=== PATIENT | female | born 1945 ===

== ENCOUNTER 2017-04-20 07:30 | Inpatient (IN) | payer MEDICARE, OTHER ==
[2017-04-20] MEDS ORDERED: SODIUM CHLORIDE 0.9% 1,000 ML IV ONE (09:21)
[2017-04-20] MEDS ORDERED: LIDOCAINE 2% INJ 20 MG/ML (20 ML MDV) ONE (09:50)
[2017-04-20] MEDS ORDERED: MIDAZOLAM 2 MG/2 ML VIAL ONE (09:54)
[2017-04-20] MEDS ORDERED: diphenhydrAMINE 50 MG/ML 1 ML VIAL ONE (09:54)
[2017-04-20] MEDS ORDERED: MIDAZOLAM 2 MG/2 ML VIAL IV ONE (10:25)
[2017-04-20] MEDS ORDERED: diphenhydrAMINE 50 MG/ML 1 ML VIAL IVP ONE (10:25)
[2017-04-20] MEDS ORDERED: LIDOCAINE 2% INJ 20 MG/ML SQ ONE (10:27)
[2017-04-20] MEDS ORDERED: BIVALIRUDIN 250 MG in SODIUM CHLORIDE 0.9% 50 ML IV ONE (10:40)
[2017-04-20] MEDS ORDERED: BIVALIRUDIN BOLUS 250 MG/50 ML IV ONE (10:40)
[2017-04-20] MEDS ORDERED: NITROGLYCERIN SL TABS 0.4 MG TAB SUBLINGUAL ONE ×2 (10:49)
[2017-04-20] MEDS ORDERED: NITROGLYCERIN 1000MCG/10ML SYRINGE INTRACORON ONE (10:53)
[2017-04-20] MEDS ORDERED: CLOPIDOGREL 75 MG TAB ONE (11:03)
[2017-04-20] MEDS ORDERED: IODIXANOL 320 MG/ML 100 ML INTRAARTER ONE (11:10)
[2017-04-20] MEDS ORDERED: RX INFO: IV CONTRAST WAS GIVEN 1 EACH MISC MISCELLANE PRN (11:20)
[2017-04-20] MEDS ORDERED: NITROGLYCERIN SL TABS 0.4 MG TAB SUBLINGUAL PRN (11:20)
[2017-04-20] MEDS ORDERED: ZOLPIDEM 5 MG TAB PO PRN (11:20)
[2017-04-20] MEDS ORDERED: MAG HYDROX/AL HYDROX/SIMETH 30 ML CUP PO PRN (11:20)
[2017-04-20] MEDS ORDERED: ATROPINE SULFATE 0.1 MG/ML 10ML SYRINGE IV PRN (11:20)
[2017-04-20] MEDS: SODIUM CHLORIDE 0.9% 1,000 ML IV SCH ×2 (11:56→23:33)
[2017-04-20] MEDS ORDERED: ACETAMINOPHEN TAB 325 MG TAB PO PRN (14:22)
[2017-04-20 15:13] VITALS: BMI 43.4
--- NOTE | 2017-04-20 18:27 | P.HPIM ---
History of Present Illness H&P Date: 04/20/17 Chief Complaint: Non-ST NH, post PCI and stent placement, hypertension, hyperlipidemia 71-year-old female one of Dr. Peterson Mancini's patient who presented to the [facility] on 04/19/2017 with chest pain since Monday midsternal radiating toward left upper side with jaw numbness and mild shortness of breath with minimum exertion. 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 Patient was admitted to the hospital afterward with above problem. Review of Systems Constitutional: Reports anorexia, Reports fatigue, Reports lethargy, Reports poor appetite, Reports weakness, Reports weight loss Eyes: bilateral as per HPI Ears: bilateral: decreased hearing Ears, nose, mouth and throat: Reports nasal discharge, Reports sinus pain, Reports sinus pressure, Denies as per HPI, Denies ant. neck pain, Denies bleeding gums, Denies dental pain, Denies dysphagia, Denies epistaxis, Denies headache, Denies hoarseness, Denies mouth pain, Denies nasal congestion, Denies neck fullness/pressure, Denies neck lump, Denies nose pain, Denies odynophagia, Denies post-nasal drip, Denies swelling in mouth, Denies swelling in throat, Denies sore throat, Denies vertigo, Denies voice changes Breasts: bilateral: as per HPI Cardiovascular: Reports chest pain, Reports decreased exercise tolerance, Reports edema, Reports high blood pressure, Reports irregular heart beat, Reports leg edema, Reports orthopnea, Reports palpitations, Reports rapid heart beat, Reports shortness of breath, Reports syncope, Denies as per HPI, Denies claudication, Denies dyspnea on exertion, Denies lightheadedness, Denies paroxysmal nocturnal dyspnea, Denies phlebitis Respiratory: Reports congestion, Reports cough, Reports dyspnea, Denies as per HPI, Denies cough with sputum, Denies excessive sputum, Denies hemoptysis, Denies home oxygen, Denies pain, Denies pain on inspiration, Denies pleurisy, Denies respiratory infections, Denies sleep apnea, Denies snoring, Denies wheezing Gastrointestinal: Reports abdominal pain, Reports bloating, Reports early satiety, Reports heartburn, Reports indigestion, Reports nausea, Denies as per HPI, Denies belching, Denies BRBPR, Denies change in bowel habits, Denies coffee ground emesis, Denies constipation, Denies diarrhea, Denies dyspepsia, Denies excessive gas, Denies hematemesis, Denies hematochezia, Denies jaundice, Denies lactose intolerance, Denies loss of appetite, Denies melena, Denies vomiting Genitourinary: Reports urinary frequency, Denies as per HPI, Denies abnormal vaginal bleeding, Denies decreased libido, Denies difficulty conceiving, Denies difficulty voiding, Denies dysmenorrhea, Denies dyspareunia, Denies dysuria, Denies flank pain, Denies genital sores, Denies hematuria, Denies hot flashes, Denies incomplete emptying, Denies kidney stones, Denies menorrhagia, Denies mixed incontinence, Denies nocturia, Denies pelvic pain, Denies post void dribbling, Denies , Denies prolapse symptoms, Denies stress incontinence , Denies urge incontinence, Denies urgency, Denies vaginal discharge, Denies vaginal dryness, Denies vaginal itching, Denies vaginal odor Musculoskeletal: Reports low back pain, Reports myalgias, Reports neck pain, Denies as per HPI, Denies arm numbness/tingling, Denies atrophy, Denies fractures, Denies frequent falls, Denies gait dysfunction, Denies hot joints, Denies leg numbness/tingling, Denies limitation of motion, Denies loss of height , Denies morning stiffness, Denies muscle cramps, Denies muscle weakness, Denies neck stiffness, Denies prior amputations, Denies redness of joints, Denies shooting arm pain, Denies shooting leg pain Musculoskeletal: bilateral: ankle pain Integumentary: Reports pruritus, Reports rash, Denies as per HPI, Denies acne, Denies boils, Denies brittle nails, Denies change in hair/nails, Denies color changes, Denies darkening of skin, Denies depigmentation, Denies dryness, Denies foot/leg ulcers, Denies growths, Denies hirsutism, Denies lesions, Denies onychomycosis, Denies sores, Denies striae, Denies unusual bruising, Denies wounds Neurological: Reports spasticity, Denies as per HPI, Denies aphasia, Denies ataxia, Denies balance difficulties, Denies burning pain, Denies change in mentation, Denies change in smell/taste, Denies change in speech, Denies confusion, Denies convulsions, Denies double vision, Denies gait dysfunction, Denies head injury, Denies headaches, Denies hearing difficulties, Denies lack of coordination, Denies loss of vision, Denies memory loss, Denies migraines, Denies motor disturbance, Denies numbness, Denies paralysis, Denies paresthesias , Denies seizures, Denies sensory deficit, Denies syncope, Denies tic, Denies tingling, Denies transient paralysis, Denies tremors, Denies vertigo, Denies weakness, Denies visual changes Psychiatric: Denies as per HPI, Denies anhedonia, Denies anxiety, Denies anxiety attacks, Denies change in appetite, Denies change in libido, Denies change in sleep habits, Denies confusion, Denies depression, Denies difficulty concentrating, Denies disorientation, Denies hallucinations, Denies hopelessness , Denies hypersomnia, Denies insomnia, Denies irritability, Denies mood swings, Denies paranoia, Denies sadness/tearfulness, Denies sleep disturbances, Denies suicidal ideation Endocrine: Reports cold intolerance, Reports fatigue, Reports polyuria, Denies as per HPI, Denies deepening of the voice, Denies excessive sweating, Denies excessive thirst, Denies flushing, Denies heat intolerance, Denies high blood sugars, Denies increase in ring/shoe/hat size, Denies low blood sugars, Denies nocturia, Denies palpitations, Denies polydipsia, Denies polyphagia, Denies proptosis, Denies recent glucocorticoid use, Denies thyroid mass, Denies weight change Hematologic/Lymphatic: Reports easy bruising, Denies as per HPI, Denies easy bleeding, Denies lymphadenopathy, Denies lymphedema, Denies thrombophilia Allergic/Immunologic: Denies as per HPI, Denies allergic rhinitis, Denies anaphylaxis, Denies angioedema, Denies gluten intolerance, Denies persistent infections, Denies seasonal allergies, Denies urticaria, Denies wheezing Past Medical History - Past Family History Father Family Medical History: CVA/TIA Mother Additional Family Medical History / Comment(s): from pneumonia Medications and Allergies Home Medications Medication Instructions Recorded Confirmed Type Acetaminophen [Tylenol] 650 mg PO Q4H PRN 04/20/17 04/20/17 History Atenolol [Tenormin] 25 mg PO DAILY 04/20/17 04/20/17 History Ibuprofen [Motrin] 400 mg PO Q6HR PRN 04/20/17 04/20/17 History Losartan/Hydrochlorothiazide 1 tab PO DAILY 04/20/17 04/20/17 History [Hyzaar 50-12.5 Tablet] Allergies Allergy/AdvReac Type Severity Reaction Status Date / Time No Known Allergies Allergy Verified 04/20/17 13:36 Physical Exam Vitals: Vital Signs Temp Pulse Resp BP BP Pulse Ox 04/20/17 08:45 98.1 F 62 18 141/70 138/73 93 L Intake and Output 04/19/17 04/20/17 04/20/17 22:59 06:59 14:59 Intake Total 333 Balance 333 Intake: IV 333 Other: Weight 73.028 kg Patient Weight 04/21/17 06:59 Weight 73.028 kg - Constitutional General appearance: no average body habitus, cooperative, no disheveled, no mild distress, no morbidly obese, no acute distress, no obese, no severe distress, no thin - EENT Eyes: no abnormal pupil, no anicteric sclerae, no disc margins sharp, no edentulous, no EOMI, no PERRLA, no fundus normal, no photophobia, no dentition normal, no poor dentition, no ptosis, no scleral icterus, normal appearance ENT: hard of hearing, no hearing grossly normal, no NA/AT, normal oropharynx, no other, no pharyngeal erythema, no thrush, no tonsillar exudates, no tonsillar swelling Ears: bilateral: normal - Neck Neck: no lymphadenopathy, normal ROM, no other, no rigidity, no stridor, no thyromegaly Carotids: bilateral: upstroke normal Thyroid: bilateral: normal size - Respiratory Respiratory: bilateral: CTA - Cardiovascular Rhythm: regular Heart sounds: normal: S1, S2 Abnormal Heart Sounds: systolic murmur, S3 Gallop - Gastrointestinal General gastrointestinal: no absent bowel sounds, decreased bowel sounds, no distended, no hepatomegaly, no hyperactive bowel sounds, no normal bowel sounds , no organomegaly, no rigid, no scaphoid, soft, no splenomegaly, no tenderness, no umbilical hernia, no ventral hernia - Integumentary Integumentary: no calor, no cellulitis, no cyanotic, no decreased turgor, no flushed, no jaundiced, normal, no normal turgor, pale, rash, no ulcer - Neurologic Neurologic: CNII-XII intact - Musculoskeletal Musculoskeletal: gait normal, generalized weakness, no strength equal bilaterally, no right sided weakness, no left sided weakness - Psychiatric Psychiatric: A&O x's 3, appropriate affect Thrombosis Risk Factor Assmnt - DVT/VTE Prophylaxis DVT/VTE Prophylaxis: Pharmacologic Prophylaxis ordered Assessment and Plan Plan: 1 non-ST NH: Continue patient on anticoagulation continue secondary prevention she had post PCI and stent placement a Chin will be on antiplatelet agent along with aspirin statin but beta angeles and BELEN inhibitor. Repeat lab continue to watch patient with status watch for any arrhythmia. 2 post PCI and stent placement: Continue antiplatelet agent along with aspirin and beta angeles. 3 hypertension: Has been well controlled on losartan hydrochlorothiazide and Tenormin resume both medication. 4 hyperlipidemia: Patient will be on higher dose of statin but atorvastatin 40- 80 mg daily. 5 nSevere GERD: Patient be on Pepcid 20 mg daily. 6 nDVT prophylaxis: Patient will be on heparin subcutaneous and knee-high JUSTUS hose. CODE STATUS: Full code. Expectation from's admission: Patient be in the hospital for more than 2 nights.
[2017-04-20] MEDS ORDERED: ATORVASTATIN 80 MG TAB PO SCH (21:00)
[2017-04-20] MEDS: METOPROLOL TARTRATE 12.5 MG TAB PO SCH (21:02)
[2017-04-21 07:28] LABS: Basophils % (A) 1 %; CH 29.2; Eosinophils # (A) 0.1 k/uL (0-0.7); Eosinophils % (A) 2 %; HCT 35.4 % (34.0-46.0); HDW 2.27; HGB 11.7 gm/dL (11.4-16.0); Luc # (Auto) 0.18; Luc % (Auto) 2; Lymphocytes # (A) 1.4 k/uL (1.0-4.8); Lymphocytes % (A) 19 %; MCH 29.5 pg (25.0-35.0); MCHC 33.1 g/dL (31.0-37.0); MCV 88.9 fL (80.0-100.0); Mean Platelet Volume 6.4; Monocytes # (A) 0.5 k/uL (0-1.0); Monocytes % (A) 6 %; Neutrophils # (A) 5.3 k/uL (1.3-7.7); Neutrophils % (A) 70 %; RBC 3.98 m/uL (3.80-5.40); RDW 12.6 % (11.5-15.5); WBC 7.5 k/uL (3.8-10.6); WBC (Perox) 7.46
[2017-04-21 07:30] LABS: Anion Gap 8 mmol/L; Blood Urea Nitrogen 19 mg/dL (7-17); Calcium 8.9 mg/dL (8.4-10.2); Carbon Dioxide 24 mmol/L (22-30); Chloride 107 mmol/L (98-107); Glucose 102 mg/dL (74-99); Non-African American GFR(MDRD) >60 (>60 ml/min/1.73 sqM); Potassium 4.5 mmol/L (3.5-5.1); Sodium 139 mmol/L (137-145)
[2017-04-21 08:29] VITALS: RESP 16
[2017-04-21] MEDS: METOPROLOL TARTRATE 12.5 MG TAB PO SCH (08:30)
[2017-04-21] MEDS ORDERED: ASPIRIN 81 MG CHEW PO SCH (09:00)
[2017-04-21] MEDS ORDERED: LOSARTAN 50 MG TAB PO SCH (09:00)
[2017-04-21] MEDS ORDERED: CLOPIDOGREL 75 MG TAB PO SCH (11:22)
[2017-04-21 11:27] VITALS: BP 127/70; PULSE 72; TEMP 97.7
--- NOTE | 2017-04-21 11:55 | CC ---
DATE OF SERVICE: 04/20/2017 PROCEDURE: Left heart catheterization, coronary angiography. PERFORMED BY: Dr. Panda Richard. CLINICAL INFORMATION: Mrs. Rosalia Wills is a 71 -year-old lady with diet controlled Type 2 diabetes, hypertension, who presented with chest pain and had a non-ST elevation HI at [facility]. She was stabilized with heparin and nitro and transferred here for coronary angiography intervention. The patient was pain free on arrival. PROCEDURE NOTE: Under local anesthesia and strict aseptic precautions, a 6 Hungarian introducer was placed in the right femoral artery. Using standard She catheter I performed coronary angiography and noted that the RCA was totally occluded with collaterals from the left system. Echo had revealed inferobasal hypokinesia. Ejection fraction 50%. LAD had a 95% mid LAD lesion. Advised intervention that was performed expeditiously. LV gram was not performed but LV pressures were checked. CARDIAC CATHETERIZATION FINDINGS: The left ventricle end diastolic pressure was 8 mmHg and there was no gradient across the aortic valve. CORONARY ANGIOGRAPHY FINDINGS: Right coronary artery is probably a codominant vessel, totally occluded in the proximal portion with limited antegrade flow. Left main coronary artery: Short, patent, disease free vessel that bifurcates into LAD and circumflex. Left anterior descending coronary artery: Good caliber vessel extends along the anterior wall gives off septal and diagonal branches. In the mid portion, there is 95% stenosis. The caliber improves, runs towards the apex and supplies inferoapical portion. There is a fairly decent network of collaterals coming from the LAD system opacifying the distal branches of the RCA which appears to be a chronic occlusion. Left posterior circumflex coronary artery: Technically this is a codominant vessel which gives off two good sized obtuse marginal and then distally continues as a posterolateral branch which has minor diffuse disease throughout. There are no significant lesions in the circumflex system. LEFT VENTRICULOGRAM: This was not performed. FINAL IMPRESSION: This patient has total occlusion of the RCA with rich collaterals coming from the left system. There is a 95% mid LAD disease, minor irregularities in the codominant circumflex are noted. LV gram was not performed and filling pressures are normal. RECOMMENDATIONS: I recommend intervention of the LAD that was performed expeditiously. [facility]
--- NOTE | 2017-04-21 12:01 | PTCA ---
DATE OF PROCEDURE: 04/20/17 PROCEDURE: PTCA and stenting of mid left anterior descending coronary artery. PERFORMED BY: Dr. Panda Richard. PROCEDURE NOTE: Following coronary angiography, I recommended intervention of the mid LAD which had a 95% mid LAD lesion. RCA was totally occluded and collaterals going to the RCA mostly from the LAD system. The existing 6 Yi introducer in the right femoral artery was used to perform the procedure. I used a standard left She type guide catheter to cannulate the left coronary artery. A BMW wire was used to cross the lesion. Predilatation was performed using a 2.25 caliber 20 mm long Trek balloon. Subsequently I deployed a 20 mm long 2.5 caliber Promus stent of 20 mm length. This was a drug eluting stent. The patient had chest pain and precordial ST elevation. Excellent angiographic result without complication was achieved. The patient received 600 mg of Plavix. She also received Angiomax bolus and infusion as per protocol. Excellent angiographic result without complication was achieved. The sheath was taken out and a Perclose device used to secure hemotasis but because of continued oozing, a FemStop was applied after manual pressure. She was sent to her room in stable condition. The results were discussed with the patient and family. Moderate conscious sedation was provided for the cardiac catheterization and PCI for a total duration of 45 minutes with a combination of Versed and Benadryl. The patient tolerated the procedure well without complications. FUAD
--- NOTE | 2017-04-21 13:40 | P.PN ---
Subjective 71-year-old female one of Dr. Peterson Mancini's patient who presented to [facility] on 04/19/2017 with chest pain since Monday midsternal radiating toward left upper side with jaw numbness and mild shortness of breath with minimum exertion. 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 Patient was admitted to the hospital afterward with above problem. 04/21: Patient is being prepared for discharge home today. She denies having any chest pain or shortness of breath. She has been ambulating without difficulty. Patient is being discharged home today in stable condition. Objective - Vital Signs Vital signs: Vital Signs Temp 97.4 F L 04/21/17 08:29 Pulse 78 04/21/17 08:29 Resp 16 04/21/17 08:29 BP 143/70 04/21/17 08:29 Pulse Ox 92 L 04/21/17 08:29 Intake & Output 04/20/17 04/21/17 04/21/17 18:59 06:59 18:59 Intake Total 633 500 Balance 633 500 Weight 73.028 kg 73.4 kg Intake: IV 333 Intake, IV Titration 300 500 Amount Sodium Chloride 0.9% 1, 300 500 000 ml @ 100 mls/hr IV . Q10H [facility] Rx#:[id number] Other: Voiding Method Toilet Toilet Bedpan # Voids 1 2 - Exam General appearance: no average body habitus, cooperative, no disheveled, no mild distress, no morbidly obese, no acute distress, no obese, no severe distress, no thin - EENT Eyes: no abnormal pupil, no anicteric sclerae, no disc margins sharp, no edentulous, no EOMI, no PERRLA, no fundus normal, no photophobia, no dentition normal, no poor dentition, no ptosis, no scleral icterus, normal appearance ENT: hard of hearing, no hearing grossly normal, no NA/AT, normal oropharynx, no other, no pharyngeal erythema, no thrush, no tonsillar exudates, no tonsillar swelling Ears: bilateral: normal - Neck Neck: no lymphadenopathy, normal ROM, no other, no rigidity, no stridor, no thyromegaly Carotids: bilateral: upstroke normal Thyroid: bilateral: normal size - Respiratory Respiratory: bilateral: CTA - Cardiovascular Rhythm: regular Heart sounds: normal: S1, S2 Abnormal Heart Sounds: systolic murmur, S3 Gallop - Gastrointestinal General gastrointestinal: no absent bowel sounds, decreased bowel sounds, no distended, no hepatomegaly, no hyperactive bowel sounds, no normal bowel sounds , no organomegaly, no rigid, no scaphoid, soft, no splenomegaly, no tenderness, no umbilical hernia, no ventral hernia - Integumentary Integumentary: no calor, no cellulitis, no cyanotic, no decreased turgor, no flushed, no jaundiced, normal, no normal turgor, pale, rash, no ulcer - Neurologic Neurologic: CNII-XII intact - Musculoskeletal Musculoskeletal: gait normal, generalized weakness, no strength equal bilaterally, no right sided weakness, no left sided weakness - Psychiatric Psychiatric: A&O x's 3, appropriate affect - Labs CBC & Chem 7: 04/21/17 06:28 04/21/17 06:28 Labs: Abnormal Lab Results - Last 24 Hours (Table) 04/21/17 Range/Units 06:28 BUN 19 H (7-17) mg/dL Glucose 102 H (74-99) mg/dL Assessment and Plan Plan: 1 non-ST MS: Status post PCI and stent placement. Continue aspirin 81 mg daily , Lipitor 80 mg daily, Plavix 75 mg daily, Cozaar 100 mg daily and Lopressor 12.5 mg twice daily. 2 post PCI and stent placement: Continue antiplatelet agent along with aspirin and beta angeles. 3 hypertension: Medications have been altered to include Lopressor, Cozaar. 4 hyperlipidemia: continueatorvastatin 80 mg daily. 5 Severe GERD: Patient be on Pepcid 20 mg daily. 6 DVT prophylaxis: Patient will be on heparin subcutaneous and knee-high JUSTUS hose. CODE STATUS: Full code. Discharge plan: Return home today Impression and plan of care have been directed as dictated by the signing physician. Debo Garcia nurse practitioner acting as scribe for signing physician. Cc: Dr. Peterson Mancini
--- NOTE | 2017-04-21 14:14 | P.PN ---
Subjective Principal diagnosis: Non-STEMI This is a pleasant 71-year-old female with a history of diabetes, hypertension and obesity. She was a presented to [facility] with complaints of chest pain and was found to be positive for a non-ST elevation [place]. Patient was transferred to [facility] and underwent cardiac catheterization and subsequent stent placement to the mid LAD which had a 95% lesion. Patient was also found to have a totally occluded RCA with collaterals going to the RCA mostly from the LAD system. Patient is doing well. Upon examination she is resting comfortably in bed. She denies further complaints of chest discomfort and has had no shortness of breath. She denies pain or tenderness at the right groin puncture site. Objective - Vital Signs Vital signs: Vital Signs Temp 97.7 F 04/21/17 11:27 Pulse 72 04/21/17 11:27 Resp 16 04/21/17 11:27 BP 127/70 04/21/17 11:27 Pulse Ox 93 L 04/21/17 11:27 Intake & Output 04/20/17 04/21/17 04/21/17 18:59 06:59 18:59 Intake Total 633 500 Balance 633 500 Weight 73.028 kg 73.4 kg Intake: IV 333 Intake, IV Titration 300 500 Amount Sodium Chloride 0.9% 1, 300 500 000 ml @ 100 mls/hr IV . Q10H [facility] Rx#:[id number] Other: Voiding Method Toilet Toilet Toilet Bedpan # Voids 1 2 1 - Exam PHYSICAL EXAMINATION: HEENT: Head is atraumatic, normocephalic. Pupils equal, round. Neck is supple. There is no elevated jugular venous pressure. HEART EXAMINATION: Heart sounds regular, S1 and S2 normal. No murmur or gallop heard. CHEST EXAMINATION: Lungs are clear to auscultation and precussion. No chest wall tenderness is noted on palpation or with deep breathing. ABDOMEN: Soft, nontender. Bowel sounds are heard. No organomegaly noted. EXTREMITIES: 2+ peripheral pulses with no evidence of peripheral edema and no calf tenderness noted. Right groin puncture site soft without hematoma. NEUROLOGIC patient is awake, alert and oriented x3. . - Labs CBC & Chem 7: 04/21/17 06:28 04/21/17 06:28 Labs: Abnormal Lab Results - Last 24 Hours (Table) 04/21/17 Range/Units 06:28 BUN 19 H (7-17) mg/dL Glucose 102 H (74-99) mg/dL Assessment and Plan Plan: Assessment and plan #1 non-ST elevation [place], status post stent placement to the LAD #2 hypertension #3 diabetes From cardiology's perspective, patient may be discharged home today. Follow-up in the office next April 26 at 9:45 AM. 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 Patient was seen and examined.
== END 2017-04-21 14:49 | disposition home or self-care (01) | DRG 247 ==
LOC: 6SEL 08:28
PROVIDERS: ADMIT Internal Medicine Interventional Cardiology; ATTEND Internal Medicine Interventional Cardiology
PROC: 027034Z Dilation of Coronary Artery, One Artery with Drug-eluting Intraluminal Device, Percutaneous Approach (ICD-10-PCS; principal; 2017-04-20 09:45)
PROC: B2111ZZ Fluoroscopy of Multiple Coronary Arteries using Low Osmolar Contrast (ICD-10-PCS; principal; 2017-04-20 09:45)
PROC: 4A023N7 Measurement of Cardiac Sampling and Pressure, Left Heart, Percutaneous Approach (ICD-10-PCS; principal; 2017-04-20 09:45)
DX: I21.4 Non-ST elevation (NSTEMI) myocardial infarction (principal); I25.82 Chronic total occlusion of coronary artery; E11.9 Type 2 diabetes mellitus without complications; I10 Essential (primary) hypertension; E78.5 Hyperlipidemia, unspecified; I25.10 Atherosclerotic heart disease of native coronary artery without angina pectoris; K21.9 Gastro-esophageal reflux disease without esophagitis; Z79.899 Other long term (current) drug therapy; Z82.3 Family history of stroke
CPT/HCPCS: 80048; 85025; 93458

== ENCOUNTER 2017-04-21 20:40 | Inpatient (IN) | payer MEDICARE, OTHER ==
[2017-04-21 21:13] LABS: Basophils % (A) 0 %; CH 29.4; CHCM 33.7; Eosinophils # (A) 0.1 k/uL (0-0.7); Eosinophils % (A) 1 %; HCT 37.3 % (34.0-46.0); HDW 2.31; HGB 12.8 gm/dL (11.4-16.0); Luc # (Auto) 0.16; Luc % (Auto) 2; Lymphocytes # (A) 1.5 k/uL (1.0-4.8); Lymphocytes % (A) 15 %; MCH 30.1 pg (25.0-35.0); MCHC 34.4 g/dL (31.0-37.0); MCV 87.4 fL (80.0-100.0); Mean Platelet Volume 6.5; Monocytes # (A) 0.5 k/uL (0-1.0); Monocytes % (A) 5 %; Neutrophils # (A) 7.7 k/uL (1.3-7.7); Neutrophils % (A) 77 %; RBC 4.27 m/uL (3.80-5.40); RDW 12.6 % (11.5-15.5); WBC (Perox) 10.23
--- NOTE | 2017-04-21 21:17 | XR ---
EXAMINATION TYPE: XR chest 2V DATE OF EXAM: 04/21/2017 COMPARISON: NONE HISTORY: Tachycardia TECHNIQUE: Frontal and lateral views of the chest are obtained. FINDINGS: There is no heart failure nor confluent pneumonic infiltrate. Heart size is normal. There are no hilar masses. There are chest leads. There is spurring in the thoracic spine. IMPRESSION: No active cardiopulmonary disease.
[2017-04-21 21:20] LABS: ALT 38 U/L (9-52); AST 34 U/L (14-36); Alkaline Phosphatase 110 U/L (38-126); Anion Gap 13 mmol/L; Blood Urea Nitrogen 16 mg/dL (7-17); Calcium 9.8 mg/dL (8.4-10.2); Carbon Dioxide 21 mmol/L (22-30); Chloride 106 mmol/L (98-107); Glucose 119 mg/dL (74-99); Magnesium 1.8 mg/dL (1.6-2.3); Non-African American GFR(MDRD) >60 (>60 ml/min/1.73 sqM); Potassium 3.9 mmol/L (3.5-5.1); Sodium 140 mmol/L (137-145); Total Bilirubin 0.4 mg/dL (0.2-1.3); Total Protein 7.3 g/dL (6.3-8.2)
[2017-04-21 21:25] LABS: Prothrombin Time 10.2 sec (9.0-12.0)
[2017-04-21 21:46] LABS: Creatine Kinase MB 4.7 ng/mL (0.0-2.4)
[2017-04-21 21:47] LABS: Troponin I 1.23 ng/mL (0.000-0.034)
[2017-04-21] MEDS ORDERED: ASPIRIN 81 MG CHEW PO STA (21:57)
[2017-04-21] MEDS ORDERED: MORPHINE SULFATE 4 MG/ML SYRINGE IV PRN (21:57)
[2017-04-21] MEDS ORDERED: HEPARIN SODIUM,PORCINE 5,000 UNIT/ML 1 ML VIAL IV ONE (21:57)
[2017-04-21] MEDS ORDERED: HEPARIN SODIUM,PORCINE 5,000 UNIT/ML 1 ML VIAL IV PRN (21:57)
--- NOTE | 2017-04-21 21:59 | ED ---
General Adult HPI - General Chief complaint: Chest Pain Stated complaint: Chest pain Time Seen by Provider: 04/21/17 20:55 Source: patient, RN notes reviewed, old records reviewed Mode of arrival: wheelchair Limitations: no limitations - History of Present Illness Initial comments: This is a 71-year-old female here for evaluation today. The patient does presents today for evaluation regarding chest pain. Patient has history of recent cardiac disease with stent placement. Patient was discharged possibly yesterday but has had chest pain started today, persistent chest pain with shortness of breath. No diaphoresis, not as severe as her initial cardiac event. Patient denies fevers, no cough or congestion. Has been taking all medications as prescribed - Related Data Previous Rx's Medication Instructions Recorded Aspirin 81 mg PO DAILY 04/21/17 Atorvastatin [Lipitor] 80 mg PO HS #30 tab 04/21/17 Clopidogrel [Plavix] 75 mg PO DAILY #30 tab 04/21/17 Losartan [Cozaar] 100 mg PO DAILY #30 tab 04/21/17 Metoprolol Tartrate [Lopressor] 12.5 mg PO BID #60 tab 04/21/17 Nitroglycerin Sl Tabs [Nitrostat] 0.4 mg SUBLINGUAL Q5M PRN #25 tab 04/21/17 Allergies Allergy/AdvReac Type Severity Reaction Status Date / Time No Known Allergies Allergy Verified 04/21/17 21:13 Review of Systems ROS Statement: Those systems with pertinent positive or pertinent negative responses have been documented in the HPI. ROS Other: All systems not noted in ROS Statement are negative. Past Medical History Past Medical History: Chest Pain / Angina, Hyperlipidemia, Hypertension, Myocardial Infarction ([place]), Skin Disorder Last Myocardial Infarction Date:: 03/2017 History of Any Multi-Drug Resistant Organisms: None Reported Past Surgical History: Heart Catheterization With Stent, Tonsillectomy Past Anesthesia/Blood Transfusion Reactions: No Reported Reaction Date of Last Stent Placement:: 03/2017 Past Psychological History: No Psychological Hx Reported Smoking Status: Never smoker Past Alcohol Use History: None Reported Past Drug Use History: None Reported - Past Family History Father Family Medical History: CVA/TIA Mother Additional Family Medical History / Comment(s): from pneumonia General Exam Limitations: no limitations General appearance: alert, in no apparent distress Head exam: Present: atraumatic, normocephalic, normal inspection Eye exam: Present: normal appearance, PERRL, EOMI. Absent: scleral icterus, conjunctival injection, periorbital swelling ENT exam: Present: normal exam, mucous membranes moist Neck exam: Present: normal inspection. Absent: tenderness, meningismus, lymphadenopathy Respiratory exam: Present: normal lung sounds bilaterally. Absent: respiratory distress, wheezes, rales, rhonchi, stridor Cardiovascular Exam: Present: regular rate, normal rhythm, normal heart sounds. Absent: systolic murmur, diastolic murmur, rubs, gallop, clicks GI/Abdominal exam: Present: soft, normal bowel sounds. Absent: distended, tenderness, guarding, rebound, rigid Extremities exam: Present: normal inspection, full ROM, normal capillary refill. Absent: tenderness, pedal edema, joint swelling, calf tenderness Back exam: Present: normal inspection Neurological exam: Present: alert, oriented X3, CN II-XII intact Psychiatric exam: Present: normal affect, normal mood Skin exam: Present: warm, dry, intact, normal color. Absent: rash Course Vital Signs 04/21/17 04/21/17 04/21/17 20:47 21:13 21:59 Temperature 98.4 F Pulse Rate 97 94 94 Respiratory 18 20 18 Rate Blood Pressure 212/100 174/82 141/71 O2 Sat by Pulse 96 98 96 Oximetry - Reevaluation(s) Reevaluation #1: 04/21/17 22:23 Medical record is reviewed EKG Findings - EKG Comments: EKG Findings:: EKG shows normal sinus rhythm at 91, MD 182, QRS 86, QTC 432 Medical Decision Making - Medical Decision Making 71 [id number] chest A, history of recent stent placement, patient will be admitted for cardiac observation, currently hemodynamic stable, will admit for cardiac and cardiopulmonary observation - Lab Data Result diagrams: 04/21/17 21:00 04/21/17 21:00 Lab Results 04/21/17 04/21/17 04/21/17 Range/Units 21:00 21:00 21:00 WBC 10.0 (3.8-10.6) k/uL RBC 4.27 (3.80-5.40) m/uL Hgb 12.8 (11.4-16.0) gm/dL Hct 37.3 (34.0-46.0) % MCV 87.4 (80.0-100.0) fL MCH 30.1 (25.0-35.0) pg MCHC 34.4 (31.0-37.0) g/dL RDW 12.6 (11.5-15.5) % Plt Count 245 (150-450) k/uL Neutrophils % 77 % Lymphocytes % 15 % Monocytes % 5 % Eosinophils % 1 % Basophils % 0 % Neutrophils # 7.7 (1.3-7.7) k/uL Lymphocytes # 1.5 (1.0-4.8) k/uL Monocytes # 0.5 (0-1.0) k/uL Eosinophils # 0.1 (0-0.7) k/uL Basophils # 0.0 (0-0.2) k/uL PT (9.0-12.0) sec INR (<1.2) APTT (22.0-30.0) sec Sodium 140 (137-145) mmol/L Potassium 3.9 (3.5-5.1) mmol/L Chloride 106 (98-107) mmol/L Carbon Dioxide 21 L (22-30) mmol/L Anion Gap 13 mmol/L BUN 16 (7-17) mg/dL Creatinine 0.90 (0.52-1.04) mg/dL Est GFR (MDRD) Af Amer >60 (>60 ml/min/1.73 sqM) Est GFR (MDRD) Non-Af >60 (>60 ml/min/1.73 sqM) Glucose 119 H (74-99) mg/dL Calcium 9.8 (8.4-10.2) mg/dL Magnesium 1.8 (1.6-2.3) mg/dL Total Bilirubin 0.4 (0.2-1.3) mg/dL AST 34 (14-36) U/L ALT 38 (9-52) U/L Alkaline Phosphatase 110 (38-126) U/L Total Creatine Kinase 109 (30-135) U/L CK-MB (CK-2) 4.7 H* (0.0-2.4) ng/mL CK-MB (CK-2) Rel Index 4.3 Troponin I 1.230 H* (0.000-0.034) ng/mL Total Protein 7.3 (6.3-8.2) g/dL Albumin 4.4 (3.5-5.0) g/dL 04/21/17 Range/Units 21:00 WBC (3.8-10.6) k/uL RBC (3.80-5.40) m/uL Hgb (11.4-16.0) gm/dL Hct (34.0-46.0) % MCV (80.0-100.0) fL MCH (25.0-35.0) pg MCHC (31.0-37.0) g/dL RDW (11.5-15.5) % Plt Count (150-450) k/uL Neutrophils % % Lymphocytes % % Monocytes % % Eosinophils % % Basophils % % Neutrophils # (1.3-7.7) k/uL Lymphocytes # (1.0-4.8) k/uL Monocytes # (0-1.0) k/uL Eosinophils # (0-0.7) k/uL Basophils # (0-0.2) k/uL PT 10.2 (9.0-12.0) sec INR 1.0 (<1.2) APTT 23.0 (22.0-30.0) sec Sodium (137-145) mmol/L Potassium (3.5-5.1) mmol/L Chloride (98-107) mmol/L Carbon Dioxide (22-30) mmol/L Anion Gap mmol/L BUN (7-17) mg/dL Creatinine (0.52-1.04) mg/dL Est GFR (MDRD) Af Amer (>60 ml/min/1.73 sqM) Est GFR (MDRD) Non-Af (>60 ml/min/1.73 sqM) Glucose (74-99) mg/dL Calcium (8.4-10.2) mg/dL Magnesium (1.6-2.3) mg/dL Total Bilirubin (0.2-1.3) mg/dL AST (14-36) U/L ALT (9-52) U/L Alkaline Phosphatase (38-126) U/L Total Creatine Kinase (30-135) U/L CK-MB (CK-2) (0.0-2.4) ng/mL CK-MB (CK-2) Rel Index Troponin I (0.000-0.034) ng/mL Total Protein (6.3-8.2) g/dL Albumin (3.5-5.0) g/dL - Radiology Data Radiology results: report reviewed (Chest x-ray is negative for acute disease), image reviewed Critical Care Time Critical Care Time: Yes Total Critical Care Time: 31 Disposition Clinical Impression: Acute non-ST segment elevation myocardial infarction (STEMI) following previous myocardial infarction, Chest pain Disposition: ADMITTED IP TO THIS HOSP Condition: Serious Referrals: Peterson Mancini MD [Primary Care Provider] - 1-2 days
[2017-04-21] MEDS ORDERED: HEPARIN SODIUM,PORCINE/D5W PMX 25,000 UNIT in DEXTROSE/WATER 1 500ML.BAG IV SCH (22:00)
[2017-04-22 04:09] LABS: Mean Platelet Volume 6.9
[2017-04-22 05:02] LABS: Troponin I 1.33 ng/mL (0.000-0.034)
[2017-04-22 05:28] LABS: Cholesterol 149 mg/dL (<200); HDL Cholesterol 52 mg/dL (40-60)
[2017-04-22] MEDS: NITROGLYCERIN SL TABS 0.4 MG TAB SUBLINGUAL PRN ×4 (05:35→18:12)
[2017-04-22 06:09] VITALS: BMI 41.9
[2017-04-22] MEDS ORDERED: CLOPIDOGREL 75 MG TAB PO STA (08:40)
--- NOTE | 2017-04-22 08:43 | P.HPIM ---
History of Present Illness H&P Date: 04/22/17 Chief Complaint: chest pain This 71-year-old female patient seen in the outpatient setting by Dr. Peterson Mancini presented with the chief complaint of chest pain. The patient had been in the hospital and had a stent to the LAD 04/20/2017 and was released from the hospital at 3 PM on 04/21/2017. (On that episode prior to the stent patient' s pain had begun while she was painting. This episode was at rest. ) Patient states that her chest pain began at rest at home around 6 PM on 04/21. He was to her left chest with radiation to her shoulder. Did not radiate further down her arm. Did not radiate to the back. She states this is slightly different than the midsternal chest pain that she had had upon her previous presentation earlier in the week. Her prior pain did not radiate to her shoulder. She states that she took 3 nitroglycerin and the pain began to subside about half way to the hospital for reevaluation. Patient states she had no further chest pain in the emergency department. Patient did have an EKG in the emergency department at 20:50 on 04/21/2017 which did reveal some minimal ST elevation of III and aVF, depression of V4 through V6, I and aVL. Repeat EKG this morning does show some improvement in these changes. Patient was seen and evaluated in the emergency department by the emergency room physician. Patient was placed on heparin and cardiology was consulted. Patient was noted to have elevation of troponin at 1.23 upon admission and is 1.33 this a.m. Patient's CK upon admission was 109 with an MB of 4.7 and relative index of 4.3, this morning it is 95 with a CK MB of 5.0 and a relative index of 5.3. Patient was without any further chest pain after admission until 05:30 this morning. At that time it was 4 out of 10. She reported pain to her nurse at that time and did receive 2 nitroglycerin with relief. She has no further chest pain at this time. She denies dyspnea at this time but states that she did feel that she wanted some oxygen previously but denies the characterization of this as shortness of breath when asked. She does not have any dyspnea at this time,feels well on the oxygen. Patient denies any fever or chills, nausea vomiting or abdominal pain. The PA rounding with the correctional therapy director this morning is here to see the patient now and did discuss the EKGs with her. She additionally provided a packet of information showing the EKGs from when the patient was a [facility] prior to her transfer on the last admission earlier this week. EKG on this admission is different than those that did not show the same elevation at that time. The patient's daughter Sissy mendez is at the bedside with patient's permission to be present. Patient's CODE STATUS was discussed with the patient. She states at this time she does want to be a FULL CODE. I have encouraged her to discuss the rest of her wishes with her family. Review of Systems Constitutional: Patient reports no fever, no chills, no weight changes, no change in appetite Eyes: Patient reports no double vision, no visual changes. ENT: Patient reports no rhinorrhea, no post nasal drip, no sore throat. Cardiovascular: Patient reports chest pain prior to admission and recent stent to the LAD. Please see history of present illness. Patient states had some mild edema at the time of admission. This is not present at this time. No palpitations, no syncope, no orthopnea, no paroxysmal nocturnal dyspnea. Respiratory: Patient reports no dyspnea at this time but states she did have some mildly before she had oxygen placed. No cough, no wheeze reported. Gastrointestinal: Patient reports no nausea, no vomiting, no constipation, no diarrhea Genitourinary: Patient reports no dysuria, no urinary frequency, no hematuria. Musculoskeletal: Patient reports no unusual joint pain, no joint swelling or weakness. Patient reports no muscular pain. Psychiatric: Patient reports no changes in mood, no sleeping problems. Patient reports no changes in memory. Endocrine: Patient reports no thirst, no polyuria, no cold intolerance, no heat intolerance. Neurological: Patient reports no unusual paresthesias, no seizures, no paresis , no paralysis, no facila droop, no headache. Heme/Lymphatic: Patient reports no easy bruising, no bleeding tendency, no lymphadenopathy. Allergic/ Immunologic: Patient reports no recent allergic reactions or immunologic history. Skin: Patient reports chronic vitiligo changes. Past Medical History Past Medical History: Chest Pain / Angina, Hypertension, Myocardial Infarction ( [place]), Skin Disorder (vitiligo) Last Myocardial Infarction Date:: 03/2017 History of Any Multi-Drug Resistant Organisms: None Reported Past Surgical History: Heart Catheterization With Stent (LAD 04-20-2017), Orthopedic Surgery (right knee without implant, some bone removal per patient), Tonsillectomy Past Anesthesia/Blood Transfusion Reactions: No Reported Reaction Date of Last Stent Placement:: 03/2017 Past Psychological History: No Psychological Hx Reported Smoking Status: Never smoker Past Alcohol Use History: None Reported Past Drug Use History: None Reported Additional History: lives with daughter Sissy; 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 - Past Family History Father Family Medical History: CVA/TIA (in his 80s) Mother Additional Family Medical History / Comment(s): from pneumonia in her 80s Sister(s) Family Medical History: Coronary Artery Disease (CAD) (with CABG ; 2 sisters with CABG in their 60s or later) Daughter(s) Family Medical History: Diabetes Mellitus, Hypertension (two daughters with hypertension) Medications and Allergies Home Medications and Allergies Comment(s): Medications at home are: nitroglycerin sublingual 0.4 mg sublingual every 5 minutes when necessary Metoprolol 12.5 mg by mouth twice a day Cozaar 100 mg by mouth daily Plavix 75 mg by mouth daily Lipitor 80 mg by mouth every bedtime Aspirin 81 mg by mouth daily Allergies Allergy/AdvReac Type Severity Reaction Status Date / Time No Known Allergies Allergy Verified 04/21/17 21:13 Physical Exam Osteopathic Statement: *. No significant issues noted on an osteopathic structural exam other than those noted in the History and Physical/Consult. Vitals: Vital Signs Temp Pulse Pulse Resp BP BP Pulse Ox 04/22/17 06:12 89 18 123/65 94 L 04/22/17 05:40 85 18 140/77 97 04/22/17 05:33 98.3 F 87 18 163/80 98 04/22/17 04:00 98.4 F 70 18 109/59 96 04/21/17 23:47 18 04/21/17 22:52 98.7 F 88 18 145/73 98 04/21/17 22:38 98.9 F 87 18 137/72 97 04/21/17 21:59 94 18 141/71 96 04/21/17 21:13 94 20 174/82 98 04/21/17 20:47 98.4 F 97 18 212/100 96 Intake and Output 04/21/17 04/22/17 04/22/17 22:59 06:59 14:59 Intake Total 238.346 Balance 238.346 Intake: IV 125 Heparin Sodium,Porcine/ 125 D5w Pmx 25,000 unit In Dextrose/Water 1 500ml. bag @ 12 UNITS/KG/HR 15. 67 mls/hr IV .Q24H [facility] Rx #:[id number] Intake, IV Titration 113.346 Amount Heparin Sodium,Porcine/ 113.346 D5w Pmx 25,000 unit In Dextrose/Water 1 500ml. bag @ 12 UNITS/KG/HR 15. 67 mls/hr IV .Q24H KODI Rx #:[id number] Other: Voiding Method Toilet # Voids 1 Weight 70.4 kg 70.4 kg Constitutional: No acute distress, conversant, pleasant Eyes: Anicteric sclerae, moist conjunctiva, no lid-lag PERRLA ENMT: NC/AT Oropharynx clear, no erythema, exudates Neck: Supple, no masses, or JVD No carotid bruits No thyromegaly Lungs: Clear to auscultation anteriorly and posteriorly, even and nonlabored Clear to percussion Normal respiratory effort, no accessory muscle use Cardiovascular: Heart regular in rate and rhythm, No murmurs, gallops, or rubs No peripheral edema; patient reported upon admission but none present currently; Abdominal: Soft Nontender, no guarding, rebound or rigidity Abdomen moving with respiration Normoactive bowel sounds No hepatomegaly, No splenomegaly No palpable mass No abdominal wall hernia noted Skin: Normal temperature, tone, texture, turgor No induration No subcutaneous nodules Patient with vitiligo throughout No open wounds, heel skin intact No ulcers Extremities: No digital cyanosis No clubbing Pedal pulses intact and symmetrical Radial pulses intact and symmetrical Normal gait and station No calf tenderness ; no Regino's, no Jase's Psychiatric: Alert and oriented to person, place and time Appropriate affect Intact judgement Neuro: Muscles Strength 5/5 in all 4 extremities Cranial nerves II-XII grossly intact; no facial droop, tongue midline, equal facial elevation bilaterally; 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 of 5 ; biceps, triceps, quadriceps, hamstrings and EHL 5 out of 5 bilaterally No focal sensory deficits Results CBC & Chem 7: 04/22/17 03:42 04/21/17 21:00 Labs: Abnormal Lab Results - Last 24 Hours (Table) 04/21/17 04/21/17 04/22/17 Range/Units 21:00 21:00 03:42 APTT (22.0-30.0) sec Carbon Dioxide 21 L (22-30) mmol/L Glucose 119 H (74-99) mg/dL CK-MB (CK-2) 4.7 H* 5.0 H* (0.0-2.4) ng/mL Troponin I 1.230 H* 1.330 H* (0.000-0.034) ng/mL 04/22/17 Range/Units 03:42 APTT 41.6 H (22.0-30.0) sec Carbon Dioxide (22-30) mmol/L Glucose (74-99) mg/dL CK-MB (CK-2) (0.0-2.4) ng/mL Troponin I (0.000-0.034) ng/mL Comments: EKG 04/21 normal sinus rhythm, some minimal elevation of the ST in III and aVF. There is ST depression in V4 through V6 as well as I and aVL. Chest x-ray: report reviewed (no acute infiltrate) Thrombosis Risk Factor Assmnt - DVT/VTE Prophylaxis DVT/VTE Prophylaxis: Pharmacologic Prophylaxis ordered (Patient on full dose heparin for her coronary syndrome therefore not truly for prophylaxis but subcu heparin not indicated when patient on full dose heparin) - Choose All That Apply Any of the Below Risk Factors Present?: No Each Risk Factor Represents 2 Points: Age 61-74 years Thrombosis Risk Factor Assessment Total Risk Factor Score: 2 Thrombosis Risk Factor Assessment Level: Low Risk Assessment and Plan (1) Chest pain Narrative/Plan: With ST elevation noted on EKG. Case discussed with Dr. Schaffer of cardiology. Patient to return to the tailings dam laborer today for evaluation. Status: Acute (2) Hypertension Narrative/Plan: This is essential hypertension. Home beta angeles, and angiotensin receptor angeles continued. Status: Acute (3) Stented coronary artery Narrative/Plan: Of the LAD done 04/20/17. Await cardiology evaluation of LAD and other vessels upon return to the cardiac tailings dam laborer today for cardiac catheterization. Status: Acute (4) Elevated troponin Narrative/Plan: Charts reviewed from [facility] that on 04/19 patient's troponin was not elevated. However that was prior to her further evaluation for chest pain and coronary stent placement here on 04/20/2017. Do not have interval troponin for evaluation. Status: Acute (5) Hx of tonsillectomy Status: Resolved (6) History of orthopedic surgery Narrative/Plan: Remote of right knee Status: Acute
[2017-04-22] MEDS: ASPIRIN 81 MG CHEW PO SCH (08:59)
[2017-04-22] MEDS: LOSARTAN 50 MG TAB PO SCH (08:59)
[2017-04-22] MEDS ORDERED: ASPIRIN 325 MG TAB PO SCH (09:00)
[2017-04-22] MEDS ORDERED: CLOPIDOGREL 75 MG TAB PO SCH (09:00)
[2017-04-22] MEDS ORDERED: METOPROLOL TARTRATE 12.5 MG TAB PO SCH (09:00)
[2017-04-22] MEDS ORDERED: IV FLUID CONTINUATION 1,000 ML IV ONE (10:55)
[2017-04-22] MEDS ORDERED: LIDOCAINE 2% INJ 20 MG/ML (20 ML MDV) ONE (11:04)
[2017-04-22] MEDS ORDERED: diphenhydrAMINE 50 MG/ML 1 ML VIAL ONE (11:05)
[2017-04-22] MEDS ORDERED: fentaNYL (PF) 50 MCG/ML 2 ML AMP ONE (11:05)
[2017-04-22] MEDS ORDERED: LIDOCAINE 2% INJ 20 MG/ML SQ ONE ×2 (11:13→11:16)
[2017-04-22] MEDS ORDERED: diphenhydrAMINE 50 MG/ML 1 ML VIAL IVP ONE (11:16)
[2017-04-22] MEDS ORDERED: fentaNYL (PF) 50 MCG/ML 2 ML AMP IV ONE (11:17)
--- NOTE | 2017-04-22 11:19 | P.CRDCN ---
History of Present Illness Chief complaint: cp, abnormal ecg History of present illness: 71-year-old female who was discharged yesterday in stable condition pain-free who presented with midsternal chest discomfort that felt similar in character to her previous chest discomfort. She took 3 nitroglycerin with relief and came to the hospital The first 12-lead ECG showed ST elevation in lead 3 and aVF with a Q wave isolated lead 3. In addition there was a 0.[address] depression in leads V4 through V6 heart rate 91 beats a minute. She was also short of breath with some nausea She remained pain-free in the hospital on IV heparin This morning at 5:00 she had pain again She was on IV heparin Her follow-up ECG was morning shows improvement in the ST elevations. They're not as prominent as they were on admission Known coronary artery disease occluded RCA status post stenting to the mid LAD which was supplying the inferior apical myocardium also It was a good result per Dr. BONITA Richard She was pain-free when I saw her. I spoke to Dr. Chavez and recommended proceeding with coronary angiography. He will call the Creative Project Manager scheduled for today. I gave her 300 mg of Plavix her home medications were restarted by Dr. song Chest x-ray within normal limits Review of systems: No fever chills or rigors, no cough, phlegm or expectoration , no vomiting or diarrhea, no hematuria, dysuria, no musculoskeletal complaints , no strokes or seizures, no skin lesions. He presented with chest discomfort somewhat similar to what she experienced several years back prior to her stenting, some nausea and shortness of breath. NO KNOWN DRUG ALLERGIES Medication list is reviewed as documented in the chart Home medications were restarted by the admitting physician this morning Labs are reviewed at lites and normal renal function is normal first troponin 1.2 second troponin 1.33, LDL 78 hemoglobin 12.8 Impression Midsternal chest discomfort which seemed similar to previous chest discomfort associated with ST elevation noted in lead 3 and aVF upon initial admission to the ER. This morning's ECG shows improvement in ST elevation. Mildly abnormal troponin with a rising trend. Acute myocardial infarction likely Known coronary artery disease with an occluded RCA and status post stenting to the LAD recently Plan discussed with Dr. Chavez and discussed with admitting physician Dr. Song Proceed with coronary angiography today and further management based on that, continue cardiac medications as before Past Medical History Past Medical History: Chest Pain / Angina, Hypertension, Myocardial Infarction ( [place]), Skin Disorder (vitiligo) Last Myocardial Infarction Date:: 03/2017 History of Any Multi-Drug Resistant Organisms: None Reported Past Surgical History: Heart Catheterization With Stent (LAD 04-20-2017), Orthopedic Surgery (right knee without implant, some bone removal per patient), Tonsillectomy Past Anesthesia/Blood Transfusion Reactions: No Reported Reaction Date of Last Stent Placement:: 03/2017 Past Psychological History: No Psychological Hx Reported Smoking Status: Never smoker Past Alcohol Use History: None Reported Past Drug Use History: None Reported - Past Family History Father Family Medical History: CVA/TIA (in his 80s) Mother Additional Family Medical History / Comment(s): from pneumonia in her 80s Sister(s) Family Medical History: Coronary Artery Disease (CAD) (with CABG ; 2 sisters with CABG in their 60s or later) Daughter(s) Family Medical History: Diabetes Mellitus, Hypertension (two daughters with hypertension) Medications and Allergies Allergies Allergy/AdvReac Type Severity Reaction Status Date / Time No Known Allergies Allergy Verified 04/21/17 21:13 Physical Exam Vitals: Vital Signs Temp Pulse Pulse Resp BP BP Pulse Ox 04/22/17 08:00 98.2 F 80 16 130/69 97 04/22/17 06:12 89 18 123/65 94 L 04/22/17 05:40 85 18 140/77 97 04/22/17 05:33 98.3 F 87 18 163/80 98 04/22/17 04:00 98.4 F 70 18 109/59 96 04/21/17 23:47 18 04/21/17 22:52 98.7 F 88 18 145/73 98 04/21/17 22:38 98.9 F 87 18 137/72 97 04/21/17 21:59 94 18 141/71 96 04/21/17 21:13 94 20 174/82 98 04/21/17 20:47 98.4 F 97 18 212/100 96 Intake and Output 04/21/17 04/22/17 04/22/17 22:59 06:59 14:59 Intake Total 238.346 Balance 238.346 Intake: IV 125 Heparin Sodium,Porcine/ 125 D5w Pmx 25,000 unit In Dextrose/Water 1 500ml. bag @ 12 UNITS/KG/HR 15. 67 mls/hr IV .Q24H [facility] Rx #:[id number] Intake, IV Titration 113.346 Amount Heparin Sodium,Porcine/ 113.346 D5w Pmx 25,000 unit In Dextrose/Water 1 500ml. bag @ 12 UNITS/KG/HR 15. 67 mls/hr IV .Q24H [facility] Rx #:[id number] Other: Voiding Method Toilet # Voids 1 1 # Bowel Movements 0 Weight 70.4 kg 70.4 kg Results 04/22/17 03:42 04/21/17 21:00 Cardiac Enzymes 04/21/17 04/21/17 04/22/17 Range/Units 21:00 21:00 03:42 AST 34 (14-36) U/L CK-MB (CK-2) 4.7 H* 5.0 H* (0.0-2.4) ng/mL Troponin I 1.230 H* 1.330 H* (0.000-0.034) ng/mL Coagulation 04/21/17 04/22/17 04/22/17 Range/Units 21:00 03:42 10:10 PT 10.2 (9.0-12.0) sec APTT 23.0 41.6 H 48.6 H (22.0-30.0) sec Lipids 04/22/17 Range/Units 03:42 Triglycerides 96 (<150) mg/dL Cholesterol 149 (<200) mg/dL HDL Cholesterol 52 (40-60) mg/dL CBC 04/21/17 04/22/17 Range/Units 21:00 03:42 WBC 10.0 (3.8-10.6) k/uL RBC 4.27 (3.80-5.40) m/uL Hgb 12.8 (11.4-16.0) gm/dL Hct 37.3 (34.0-46.0) % Plt Count 245 215 (150-450) k/uL Comprehensive Metabolic Panel 04/21/17 Range/Units 21:00 Sodium 140 (137-145) mmol/L Potassium 3.9 (3.5-5.1) mmol/L Chloride 106 (98-107) mmol/L Carbon Dioxide 21 L (22-30) mmol/L BUN 16 (7-17) mg/dL Creatinine 0.90 (0.52-1.04) mg/dL Glucose 119 H (74-99) mg/dL Calcium 9.8 (8.4-10.2) mg/dL AST 34 (14-36) U/L ALT 38 (9-52) U/L Alkaline Phosphatase 110 (38-126) U/L Total Protein 7.3 (6.3-8.2) g/dL Albumin 4.4 (3.5-5.0) g/dL Current Medications Generic Name Dose Route Start Last Admin Trade Name Freq PRN Reason Stop Dose Admin Aspirin 81 mg 04/22/17 09:00 04/22/17 08:59 Aspirin PO 81 mg DAILY [facility] Administration Atorvastatin Calcium 80 mg 04/22/17 21:00 Lipitor PO HS [facility] Clopidogrel Bisulfate 75 mg 04/23/17 09:00 Plavix PO DAILY [facility] Heparin Sodium (Porcine) 0 unit 04/21/17 21:57 04/22/17 05:28 Heparin IV 1,760 unit Q6HR PRN Administration Low PTT Protocol Heparin Sodium/Dextrose 25,000 500 mls @ 15.67 mls/hr 04/21/17 22:00 05:28 unit/ IV Solution IV 14 units/kg/hr .Q24H [facility] 18.28 mls/hr Protocol Titration 12 UNITS/KG/HR Losartan Potassium 100 mg 04/22/17 09:00 04/22/17 08:59 Cozaar PO 100 mg DAILY [facility] Administration Metoprolol Tartrate 12.5 mg 04/22/17 09:00 04/22/17 08:59 Lopressor PO 12.5 mg BID [facility] Administration Morphine Sulfate 4 mg 04/21/17 21:57 Morphine Sulfate (Inj) IV Q5M PRN Chest Pain Nitroglycerin 0.4 mg 04/22/17 08:17 Nitrostat SUBLINGUAL Q5M PRN Chest Pain Intake and Output 04/21/17 04/22/17 04/22/17 22:59 06:59 14:59 Intake Total 238.346 Balance 238.346 Intake: IV 125 Heparin Sodium,Porcine/ 125 D5w Pmx 25,000 unit In Dextrose/Water 1 500ml. bag @ 12 UNITS/KG/HR 15. 67 mls/hr IV .Q24H [facility] Rx #:[id number] Intake, IV Titration 113.346 Amount Heparin Sodium,Porcine/ 113.346 D5w Pmx 25,000 unit In Dextrose/Water 1 500ml. bag @ 12 UNITS/KG/HR 15. 67 mls/hr IV .Q24H [facility] Rx #:[id number] Other: Voiding Method Toilet # Voids 1 1 # Bowel Movements 0 Weight 70.4 kg 70.4 kg 04/22/17 03:42 04/21/17 21:00
[2017-04-22 11:26] LABS: Creatine Kinase MB 4.6 ng/mL (0.0-2.4)
[2017-04-22 11:27] LABS: Troponin I 0.943 ng/mL (0.000-0.034)
[2017-04-22] MEDS ORDERED: BIVALIRUDIN BOLUS 250 MG/50 ML IV ONE (11:28)
[2017-04-22] MEDS ORDERED: BIVALIRUDIN 250 MG in SODIUM CHLORIDE 0.9% 50 ML IV ONE (11:29)
[2017-04-22] MEDS: NITROGLYCERIN 1000MCG/10ML SYRINGE INTRACORON ONE ×2 (11:35→11:43)
[2017-04-22] MEDS ORDERED: HYDROmorphone 2 MG/ML 1 ML SYRINGE ONE (11:58)
[2017-04-22] MEDS ORDERED: HYDROmorphone 2 MG/ML 1 ML SYRINGE IV ONE (12:00)
[2017-04-22] MEDS ORDERED: IOHEXOL 350 MG/ML 125ML BOTTLE INJ ONE (12:00)
[2017-04-22] MEDS ORDERED: RX INFO: IV CONTRAST WAS GIVEN 1 EACH MISC MISCELLANE PRN (12:14)
[2017-04-22] MEDS ORDERED: NITROGLYCERIN SL TABS 0.4 MG TAB SUBLINGUAL PRN (12:14)
[2017-04-22] MEDS ORDERED: ATROPINE SULFATE 0.1 MG/ML 10ML SYRINGE IV PRN (12:14)
[2017-04-22] MEDS ORDERED: ZOLPIDEM 5 MG TAB PO PRN (12:14)
[2017-04-22] MEDS ORDERED: MAG HYDROX/AL HYDROX/SIMETH 30 ML CUP PO PRN (12:14)
[2017-04-22] MEDS ORDERED: SODIUM CHLORIDE 0.9% 1,000 ML IV SCH (12:15)
[2017-04-22] MEDS: METOPROLOL TARTRATE 25 MG TAB PO SCH (20:46)
[2017-04-22] MEDS: ATORVASTATIN 80 MG TAB PO SCH (20:46)
[2017-04-22 20:58] VITALS: RESP 18
[2017-04-23 06:47] LABS: Mean Platelet Volume 7.3
[2017-04-23 07:00] LABS: Anion Gap 8 mmol/L; Blood Urea Nitrogen 14 mg/dL (7-17); Calcium 8.8 mg/dL (8.4-10.2); Carbon Dioxide 22 mmol/L (22-30); Chloride 108 mmol/L (98-107); Glucose 94 mg/dL (74-99); Non-African American GFR(MDRD) >60 (>60 ml/min/1.73 sqM); Potassium 4.1 mmol/L (3.5-5.1); Sodium 138 mmol/L (137-145)
[2017-04-23] MEDS: CLOPIDOGREL 75 MG TAB PO SCH (09:00)
[2017-04-23] MEDS: METOPROLOL TARTRATE 25 MG TAB PO SCH (09:00)
[2017-04-23] MEDS: ASPIRIN 81 MG CHEW PO SCH (09:00)
[2017-04-23] MEDS: LOSARTAN 50 MG TAB PO SCH (09:01)
--- NOTE | 2017-04-23 10:46 | CC ---
Ms. Wills is a 71 year old female with history of coronary artery disease who three days ago presented with evidence of troponin elevation, underwent cardiac catheterization by Dr. Panda Richard and was found to have totally occluded right coronary artery and critical stenosis involving the mid LAD. She underwent setting of the LAD with successful outcome. The patient was discharged home and then presented again to the emergency room with symptoms of chest discomfort. She had evidence consistent with inferior wall myocardial infarction with ST segment elevation that were noted in the past. Her troponin persisted to be mildly elevated. Because of her symptoms and presentation, after evaluation by Dr. Schaffer, recommendation was made regarding cardiac catheterization. The procedure, risks and complications were discussed with the patient who is in full understanding and agreement. PROCEDURE: The patient was brought to the dental laboratory manager in a fasting semi-sedated state. After she received Fentanyl and Benadryl, and after achieving moderate conscious sedated state, using Xylocaine anesthesia and Seldinger technique, a 6 Azeri sheath was introduced into the left femoral artery. Selective right and left coronary angiography was performed using 6 Azeri 4 Bend Left She catheter and a 6 Azeri 4 Bend FR4 guiding catheter. Multiple views of the coronary arteries including hemiaxial views were obtained. Following that, angioplasty and stenting of the right coronary artery was performed. Following that, a 6 Azeri tight pigtail catheter was introduced into the left ventricle and a 30 degree KNIGHT view of the left ventricle was obtained. At the end of the procedure, catheter and sheath were removed. Hemostasis was obtained with deployment of an AngioSeal. There were no immediate complications. The patient was returned to her room in stable condition. FINDINGS: LEFT MAIN: This is a large size vessel bifurcating into left circumflex, left anterior descending artery. Left main coronary artery is without any obstructive coronary artery disease. LEFT ANTERIOR DESCENDING ARTERY: This is a large size vessel reaching towards the apex with a wrap around the apex segment giving rise to two small to moderate sized diagonal branches. The left anterior descending artery stented segment is patent with no evidence of restenosis. LEFT CIRCUMFLEX: This is a co-dominant vessel, giving rise to two obtuse marginal branches distally bifurcating into PDA and posterolateral segment and branches. The left circumflex has no evidence of coronary artery disease. RIGHT CORONARY ARTERY: This vessel is totally occluded proximally with no antegrade flow. Collaterals: There is collaterals from the left coronary system towards the right PDA and PLV. LEFT VENTRICULOGRAM: Left ventriculogram was performed in 30 degree KNIGHT view and revealed mild inferior wall hypokinesia. Ejection fraction was 50%. There was no significant mitral regurgitation. HEMODYNAMICS: There was no gradient across the aortic valve. The left ventricular end diastolic pressure was 16 to 18 mmHg. CONCLUSION: 1. Patent stent to the LAD. 2. Totally occluded right coronary artery in the proximal segment with collaterals from the left system. 3. Mildly impaired left ventricular systolic function. RECOMMENDATIONS: In view of the findings and anatomy, I have recommended proceeding with attempt to recannulize the right coronary artery. The procedure as well as risks and complications were discussed with the patient who is in full understanding and agreement. FUAD
--- NOTE | 2017-04-23 10:54 | P.PN ---
Subjective Patient is doing well following stenting of the RCA by Dr. Chavez yesterday. She presented yet again with chest discomfort with similar ECG changes as before including ST elevation in the inferior leads. Dynamic changes are noted. When she first arrived in the ER the ST elevations were quite prominent the follow-up ECG yesterday morning showed resolution of ECG changes. This morning her ECG shows T-wave inversions in the inferior leads. She is doing well no dizziness lightheadedness no shortness of breath She did have one bout of chest discomfort yesterday but it subsided. This was after the stenting. She has not had any further episodes since Blood pressure 140/60 mmHg pulse rate in the 70s, temperature is 99.3. Heart sounds are normal no murmurs no gallops no rub breath sounds are normal no rhonchi no crackles Abdomen is soft nontender Extremities are warm no edema noted Impression Chest discomfort with ST elevation noted on 12-lead ECG not very different from when she first arrived on a previous admission Status post stenting to the RCA Patent stent in the LAD Plan Reassessment of LV function tomorrow and if she has no arrhythmias no chest discomfort and his ablating in the hallways then she will be discharged home tomorrow Continue aspirin continue atorvastatin continue Plavix losartan. I will increase the metoprolol to 50 mrem twice daily today Objective - Vital Signs Vital signs: Vital Signs Temp 99.3 F 04/23/17 08:00 Pulse 79 04/23/17 08:00 Resp 18 04/23/17 08:00 BP 114/63 04/23/17 08:00 Pulse Ox 95 04/23/17 08:00 Intake & Output 04/22/17 04/23/17 04/23/17 18:59 06:59 18:59 Intake Total 922 120 Output Total 300 Balance 922 -300 120 Weight 71.4 kg Intake: IV 222 Intake, IV Titration 600 Amount Sodium Chloride 0.9% 1, 600 000 ml @ 100 mls/hr IV . Q10H [facility] Rx#:[id number] Oral 100 120 Output: Urine 300 Other: Voiding Method Toilet # Voids 1 1 # Bowel Movements 0 0 - Labs CBC & Chem 7: 04/23/17 05:36 04/23/17 05:36 Labs: Abnormal Lab Results - Last 24 Hours (Table) 08/26/17 08/27/17 Range/Units 10:10 05:36 Chloride 108 H (98-107) mmol/L CK-MB (CK-2) 4.6 H* (0.0-2.4) ng/mL Troponin I 0.943 H* (0.000-0.034) ng/mL
--- NOTE | 2017-04-23 11:21 | PCN ---
Mrs. Wills is a 71-year-old female with history of coronary artery disease, who presented with symptoms of chest discomfort, underwent cardiac catheterization and was found to have totally occluded right coronary artery. In view of that recommendation was made regarding angioplasty and stenting. The procedure, the risks and complications were discussed with the patient who was in full understanding and agreement. PROCEDURE: The 6 Ecuadorean FR4 guiding catheter was removed and a 6 Ecuadorean KR4H guiding catheter was introduced into the system. After cannulating the right coronary artery a 0.014 wire with the help of a Corsair catheter was introduced. The total occlusion was crossed. The wire was positioned distally. Following that the Corsair catheter was removed and a 2.5 x 50 mm trek balloon was advanced with 2 inflations with maximum of 8 atmospheres was done. Following that the balloon was removed. A 3.0 x 80 mm Xience Alpine stent was deployed. Postdilated at 16 atmospheres. After the last inflation, after appropriate wait, the balloon and guidewire were withdrawn back in the guiding catheter. Images were obtained and repeated. Those images revealed stable successful stenting. Following that left ventriculogram was performed. Following that, catheter and sheath were removed. Hemostasis was obtained with deployment of Angioseal. There were no immediate complications. The patient was returned to her room in stable condition. Of note, the patient had improvement of chest discomfort and procedure. There was no significant EKG changes. She received Angiomax per protocol. RESULTS: Successful stenting of the totally occluded proximal right coronary artery with reduction of stenosis from 100% to 0%. RECOMMENDATIONS: Patient will be continued on aspirin, Plavix, beta blockers and BELEN inhibitors and statins. The importance of dual antiplatelet treatment was discussed with the patient and her family who are in full understanding and agreement. DURATION OF THE PROCEDURE: 45 minutes. FUAD
--- NOTE | 2017-04-23 11:26 | MISC ---
April 22, 2017 RE: WillsRosalia Dear Dr. Mancini: I had the pleasure of performing cardiac catheterization and coronary angioplasty and stenting on the Mrs. Wills at [facility] on April 22, 2017 and a full copy of the procedure note will be forwarded to you. In brief, she underwent recannulization of a totally occluded right coronary artery. I am hopeful this procedure will stabilize her status and I would recommend to continue on dual antiplatelet treatment. Thank you again for allowing me to participate in her care. Please feel free to call me for any questions. Sincerely, FUAD
--- NOTE | 2017-04-23 16:34 | P.PN ---
Subjective Principal diagnosis: Chest pain This 71-year-old female patient presented with a chief complaint of chest pain. She was noted to have EKG changes. She was seen and evaluated by cardiology and patient was returned to the cardiac [facility] where she underwent right coronary artery stenting. She had had LAD stenting last week on the prior admission with chest pain. Patient states that she tolerated the procedure well and that she is having no bleeding from her groin. She denies any shortness of breath or chest pain at this time. She states she is feeling well and has been able to ambulate to the bathroom today. She does relate that she did have an episode of chest pain last night and the nurse indicates that this required both nitroglycerin and morphine for resolution. Cardiology was contacted at that time. Please see their note from earlier today. Patient has had no further chest pain. Patient was seen and examined. Case discussed with the patient and her multiple family members at the bedside. Objective - Vital Signs Vital signs: Vital Signs Temp 98.3 F 04/23/17 12:00 Pulse 74 04/23/17 12:00 Resp 18 04/23/17 12:00 BP 113/68 04/23/17 12:00 Pulse Ox 97 04/23/17 12:00 Intake & Output 04/22/17 04/23/17 04/23/17 18:59 06:59 18:59 Intake Total 922 240 Output Total 300 Balance 922 -300 240 Weight 71.4 kg Intake: IV 222 Intake, IV Titration 600 Amount Sodium Chloride 0.9% 1, 600 000 ml @ 100 mls/hr IV . Q10H [facility] Rx#:[id number] Oral 100 240 Output: Urine 300 Other: Voiding Method Toilet # Voids 1 1 # Bowel Movements 0 0 - Exam General: Patient awake alert and oriented x 3. No acute distress. HEENT: Sclerae are clear. Mucous membranes moist. Chest: Heart regular in rate and rhythm positive S1 and S2. No S3. No S4. No murmur heard today. Lungs: Clear to auscultation bilaterally. No wheezes rales or rhonchi. Respirations even and nonlabored. Abdomen/GI: Bowel sounds present in all 4 quadrants. Bowel sounds normoactive. No abdominal tenderness. No mass. No hepatomegaly or splenomegaly. No bruits. \ Groin: Left groin site of cath evaluated. There is no bleeding there is no erythema. Puncture site progressing appropriately. Musculoskeletal/ Extremities: No tenderness on muscular exam. No ecchymosis. Vascular: Radial pulses equal. 2/4. All extremities warm. Skin: No rash. Neurologic: Awake, alert , oriented and appropriate.. No lateralizing deficits noted on gross inspection. Psychiatric: Patient is in good spirits. Surrounded by family at the bedside. - Labs CBC & Chem 7: 04/23/17 05:36 04/23/17 05:36 Labs: Abnormal Lab Results - Last 24 Hours (Table) 04/23/17 Range/Units 05:36 Chloride 108 H (98-107) mmol/L Assessment and Plan (1) Chest pain Narrative/Plan: With ST elevation noted on EKG. Patient was returned to the [facility] yesterday. She did undergo a right coronary artery stent.. One episode of chest pain last PM. None today. Patient instructed to notify nurse if any further chest pain. Patient has been able to ambulate today. She is scheduled for an echocardiogram in the morning and further evaluation by cardiology to determine if she is stable for discharge. Status: Acute (2) Hypertension Status: Acute (3) Stented coronary artery Narrative/Plan: Of the LAD done 04/20/17. RCA stent done 04/22/2017 Status: Acute (4) Elevated troponin Narrative/Plan: Charts reviewed from [facility] that on 04/19 patient's troponin was not elevated. However that was prior to her further evaluation for chest pain and coronary stent placement here on 04/20/2017. Do not have interval troponin for evaluation. Improved on subsequent check. No ongoing pain. Status: Acute (5) Hx of tonsillectomy Status: Resolved (6) History of orthopedic surgery Narrative/Plan: Remote of right knee Status: Acute Plan: Cardiology's notes appreciated. We'll monitor patient for any further signs of pain. Patient to undergo further cardiac evaluation in the morning to determine if she is stable for discharge with outpatient follow-up. Did stress to the patient the need for dual antiplatelet therapy after discharge. Also stressed to her if any physicians discuss any type of surgical procedures or anything else for which her anticoagulants would need to be held that she would need to discuss that with her grounding engineer before proceeding with anything that nature. Explained risk of coronary stent closure if unable to take anticoagulants. Patient expresses understanding of same. Dr. Schaffer's recommendations appreciated and will follow with cardiology to determine if patient can be discharged tomorrow. Medications laboratory and vital signs reviewed.
[2017-04-23] MEDS: NITROGLYCERIN SL TABS 0.4 MG TAB SUBLINGUAL PRN (18:38)
[2017-04-23] MEDS: ATORVASTATIN 80 MG TAB PO SCH (20:52)
[2017-04-23] MEDS: METOPROLOL TARTRATE 50 MG TAB PO SCH (20:52)
[2017-04-24 06:49] LABS: Mean Platelet Volume 7.2
[2017-04-24] MEDS: CLOPIDOGREL 75 MG TAB PO SCH (09:21)
[2017-04-24] MEDS: LOSARTAN 50 MG TAB PO SCH (09:21)
[2017-04-24] MEDS: ASPIRIN 81 MG CHEW PO SCH (09:22)
[2017-04-24] MEDS: METOPROLOL TARTRATE 50 MG TAB PO SCH (09:22)
[2017-04-24 09:30] VITALS: TEMP 99
--- NOTE | 2017-04-24 11:50 | P.PN ---
Subjective Principal diagnosis: Chest pain This is a 71-year-old female who was in the hospital recently when she presented with a myocardial infarction and underwent stenting to the LAD. Subsequent EKGs showed persistence yet some improvement in ST elevation in the inferior leads, patient was discharged home in the next day returned to the hospital again with non-ST elevation myocardial infarction with ST elevation in the inferior leads. She was taken to the cardiac catheterization lab by Dr. Chavez where she underwent angioplasty with stenting of the right coronary artery. Patient was seen and examined this morning, denied any chest pain or difficulty in breathing. She's been up ambulating without any difficulty. Blood pressure 128/60 with a heart rate in the 80s, temperature 99.0. From cardiology's perspective, she may be able to be discharged home today, we will make her a follow-up appointment to see Dr. BONITA Richard in the office post discharge. Objective - Vital Signs Vital signs: Vital Signs Temp 99.0 F 04/24/17 08:00 Pulse 91 04/24/17 10:32 Resp 18 04/24/17 08:00 BP 144/66 04/24/17 10:32 Pulse Ox 98 04/24/17 10:32 Intake & Output 04/23/17 04/24/17 04/24/17 18:59 06:59 18:59 Intake Total 490 0 Balance 490 0 Weight 70.8 kg Intake: Intake, IV Titration 0 Amount Sodium Chloride 0.9% 1, 0 000 ml @ 100 mls/hr IV . Q10H [facility] Rx#:[id number] Oral 490 Other: Voiding Method Toilet # Voids 1 # Bowel Movements 0 - Exam PHYSICAL EXAMINATION: HEENT: Head is atraumatic, normocephalic. Pupils equal, round. Neck is supple. There is no elevated jugular venous pressure. HEART EXAMINATION: Heart S1, S2 normal. No murmur or gallop heard. CHEST EXAMINATION: Lungs are clear to auscultation and precussion. No chest wall tenderness is noted on palpation or with deep breathing. ABDOMEN: Soft, nontender. Bowel sounds are heard. No organomegaly noted. EXTREMITIES: 2+ peripheral pulses with no evidence of peripheral edema and no calf tenderness noted. NEUROLOGIC patient is awake, alert and oriented -3. . - Labs CBC & Chem 7: 04/24/17 05:51 08/27/17 05:36 Assessment and Plan (1) ST elevation (STEMI) myocardial infarction involving right coronary artery Status: Acute (2) S/P right coronary artery (RCA) stent placement Status: Acute (3) Presence of stent in LAD coronary artery Status: Acute (4) Hyperlipemia Status: Acute (5) Hypertension Status: Acute Plan: From cardiology's perspective, patient may be able to be discharged home today. We will make her a follow-up appointment to see Dr. BONITA Richard in the office one week post discharge. DNP note has been reviewed, I agree with a documented findings and plan of care. Patient was seen and examined.
[2017-04-24 12:25] VITALS: BP 129/71; PULSE 77
--- NOTE | 2017-04-24 12:34 | CDI ---
In responding to this query, please exercise your independent professional judgment. The [facility] Coding Staff and Clinical Documentation Specialists appreciate your assistance in clarifying documentation, maintaining compliance with coding guidelines, accurately documenting patients condition and capturing severity of illness. The fact that a question is asked does not imply that any particular answer is desired or expected. Communication forms are a method of clarifying documentation and are not made part of the Legal Health Record. Thank you in advance for your clarification. Last Revision, October 2015 Sylvia [place] [address] [place] [address] Documentation Clarification Form Date: 04/24/2017 11:51:00 AM From: Ivette Reeder RN, CDS Admit Date: 04/21/2017 9:57:00 PM Patient Name: Rosalia Wills Visit Number: [id number] Dr. Dania Fontenot, 71 year old patient admitted for chest pain. He had a heart catheterization on with Stenting to Right Coronary Artery. Patient also had a stent placed to the Left Anterior Descending artery on 04/20. " Acute myocardial infarction likely Known coronary artery disease with an occluded RCA and status post stenting to the LAD recently With Stent (LAD 04-20-2017)" per Cardiology consult. Patient History/Risk Factors: CAD , Stent placed to LAD 04/20/2017, H/O angina, HTN Clinical Indicators: TROP 1.230-1.330-0.943, CK-MB 4.7, "chest pain with ST elevation" per H&P, "ST elevation noted in lead 3 and aVF upon initial admission to the ER per Cardiology consult Treatment: Heart Catheterization with Stent to RCA, Cardiology consult In order to capture the severity of condition and necessary documentation specificity, please clarify: Type of Infarction: STEMI NSTEMI Unable to determine Other Condition, please specify Episode of Care: Initial Episode Subsequent Episode Unable to determine Other, please specify Age of infarction if known Acute NV (within the last 4 weeks) Subsequent NV (another NV within 4 weeks) New Acute NV - (another NV after 4 weeks) Old NV (NV more than 4 weeks old) Specific date if known: Unable to determine Site of myocardial injury, if known: Anterior wall Inferior wall Lateral wall Posterior wall Septal wall Other, please specify Unable to determine Coronary artery involved, if known: Right Coronary Artery Acute Marginal Artery Right Posterior Descending Artery Left Coronary Artery Left Anterior Descending Artery Left Circumflex Artery Other, please specify Unable to determine Please document in your progress notes and discharge summary in order to capture severity of illness and risk of mortality. Include clinical findings that support your diagnosis. FYI: Press F11 to launch patient chart Thank you. FUAD
--- NOTE | 2017-04-24 15:15 | ECHOF ---
Referral Reason:post heart cath MEASUREMENTS -------- HEIGHT: 149.9 cm WEIGHT: 71.2 kg BP: 138/69 IVSd: 1.1 cm (0.6 - 1.1) LVIDd: 3.7 cm (3.9 - 5.3) LVPWd: 1.3 cm (0.6 - 1.1) EDV(Teich): 56 ml IVSs: 2.1 cm LVIDs: 1.8 cm LVPWs: 1.7 cm %IVS Thck: 91 % ESV(Teich): 10 ml EF(Teich): 82 % %FS: 50 % SV(Teich): 46 ml Ao Diam: 3.4 cm (2.0 - 3.7) AV Cusp: 2.2 cm (1.5 - 2.6) LA Diam: 2.9 cm (2.7 - 3.8) MV EXCURSION: 15.271 mm (> 18.000) MV EF SLOPE: 86 mm/s (70 - 150) EPSS: 0.5 cm MV E Philippe: 0.73 m/s MV DecT: 194 ms MV Dec Poinsett: 3.8 m/s MV A Philippe: 0.87 m/s MV E/A Ratio: 0.84 MV PHT: 56 ms E/E': 9.15 E': 0.08 m/s MR Vmax: 1.23 m/s MR maxP.07 mmHg AV Vmax: 1.18 m/s AV maxP.57 mmHg TR Vmax: 1.15 m/s TR maxP.25 mmHg RAP: 5.00 mmHg RVSP: 10.25 mmHg FINDINGS -------- Sinus rhythm. This was a technically good study. There is borderline concentric left ventricular hypertrophy. Overall left ventricular systolic function is normal with, an EF between 55 - 60 %. The right ventricle is normal in size. The left atrium is normal in size. The right atrium is normal in size. The aortic valve is trileaflet, and appears structurally normal. No aortic stenosis or regurgitation. The mitral valve leaflets are mildly thickened. Mild mitral regurgitation is present. Mild tricuspid regurgitation present. The right ventricular systolic pressure, as measured by Doppler, is 10.25mmHg. Pulmonic valve appears structurally normal. The aortic root size is normal. The pericardium is normal. CONCLUSIONS -------- 1. Sinus rhythm. 2. Mild mitral regurgitation is present. 3. Mild tricuspid regurgitation present. 4. The right ventricular systolic pressure, as measured by Doppler, is 10.25mmHg. 5. Pulmonic valve appears structurally normal. 6. The aortic root size is normal. 7. The pericardium is normal. 8. This was a technically good study. 9. There is borderline concentric left ventricular hypertrophy. 10. Overall left ventricular systolic function is normal with, an EF between 55 - 60 %. 11. The right ventricle is normal in size. 12. The left atrium is normal in size. 13. The right atrium is normal in size. 14. The aortic valve is trileaflet, and appears structurally normal. No aortic stenosis or regurgitation. 15. The mitral valve leaflets are mildly thickened. PROPELLER TESTER: Rupal Lund RDCS
--- NOTE | 2017-04-25 13:42 | P.DS ---
Providers Date of admission: 04/21/17 21:57 Expected date of discharge: 04/24/17 Attending physician: Dane Erickson Consults: 04/21/17 21:57 Consult Physician Urgent Consulting Provider: Cherelle Chin Consult Reason/Comments: elevTropCP Do you want consulting provider notified?: Yes 04/22/17 12:14 Consult Physician Routine Consulting Provider: [facility] Consult Reason/Comments: Post Interventional patient Do you want consulting provider notified?: Already Contacted Primary care physician: Peterson Mancini [facility] Course: This 71-year-old female patient seen in the outpatient setting by Dr. Peterson Mancini presented with the chief complaint of chest pain. The patient had been in the hospital and had a stent to the LAD 04/20/2017 and was released from the hospital at 3 PM on 04/21/2017. (On that episode prior to the stent patient' s pain had begun while she was painting. This episode was at rest. ) Patient states that her chest pain began at rest at home around 6 PM on 04/21. He was to her left chest with radiation to her shoulder. Did not radiate further down her arm. Did not radiate to the back. She states this is slightly different than the midsternal chest pain that she had had upon her previous presentation earlier in the week. Her prior pain did not radiate to her shoulder. She states that she took 3 nitroglycerin and the pain began to subside about half way to the hospital for reevaluation. Patient states she had no further chest pain in the emergency department. Patient did have an EKG in the emergency department at 20:50 on 04/21/2017 which did reveal some minimal ST elevation of III and aVF, depression of V4 through V6, I and aVL. Repeat EKG this morning does show some improvement in these changes. Patient was seen and evaluated in the emergency department by the emergency room physician. Patient was placed on heparin and cardiology was consulted. Patient was noted to have elevation of troponin at 1.23 upon admission and is 1.33 this a.m. Patient's CK upon admission was 109 with an MB of 4.7 and relative index of 4.3, this morning it is 95 with a CK MB of 5.0 and a relative index of 5.3. Patient was without any further chest pain after admission until 05:30 this morning. At that time it was 4 out of 10. She reported pain to her nurse at that time and did receive 2 nitroglycerin with relief. She has no further chest pain at this time. She denies dyspnea at this time but states that she did feel that she wanted some oxygen previously but denies the characterization of this as shortness of breath when asked. She does not have any dyspnea at this time,feels well on the oxygen. Patient denies any fever or chills, nausea vomiting or abdominal pain. The PA rounding with the medical imaging technician this morning is here to see the patient now and did discuss the EKGs with her. She additionally provided a packet of information showing the EKGs from when the patient was a [facility] prior to her transfer on the last admission earlier this week. EKG on this admission is different than those that did not show the same elevation at that time. The patient's daughter Sissy mendez is at the bedside with patient's permission to be present. Patient's CODE STATUS was discussed with the patient. She states at this time she does want to be a FULL CODE. I have encouraged her to discuss the rest of her wishes with her family. 04/24: Patient underwent stenting of the total occluded proximal right coronary artery with reduction of stenosis from 100% to 0% by Dr. Chavez on April 21. Echocardiogram reveals mild mitral regurgitation, mild tricuspid regurgitation, borderline concentric left ventricular hypertrophy, EF 55-60%. Discharge diagnoses: (1) ST elevated myocardial infarction, new (2) Hypertension (3) Stented coronary artery (4) Elevated troponin (5) Hx of tonsillectomy (6) History of orthopedic surgery Discharge plan: home Impression and plan of care have been directed as dictated by the signing physician. Debo Garcia nurse practitioner acting as scribe for signing physician. Cc: Dr. Peterson Mancini Patient Condition at Discharge: Good Plan - Discharge Summary New Discharge Prescriptions: New Metoprolol Tartrate [Lopressor] 50 mg PO BID #60 tab Continue Aspirin 81 mg PO DAILY Atorvastatin [Lipitor] 80 mg PO HS #30 tab Clopidogrel [Plavix] 75 mg PO DAILY #30 tab Losartan [Cozaar] 100 mg PO DAILY #30 tab Nitroglycerin Sl Tabs [Nitrostat] 0.4 mg SUBLINGUAL Q5M PRN #25 tab PRN Reason: Chest Pain Discontinued Metoprolol Tartrate [Lopressor] 12.5 mg PO BID #60 tab Discharge Medication List Aspirin 81 mg PO DAILY 04/21/17 [Rx] Atorvastatin [Lipitor] 80 mg PO HS #30 tab 04/21/17 [Rx] Clopidogrel [Plavix] 75 mg PO DAILY #30 tab 04/21/17 [Rx] Losartan [Cozaar] 100 mg PO DAILY #30 tab 04/21/17 [Rx] Nitroglycerin Sl Tabs [Nitrostat] 0.4 mg SUBLINGUAL Q5M PRN #25 tab 04/21/17 [Rx ] Metoprolol Tartrate [Lopressor] 50 mg PO BID #60 tab 04/24/17 [Rx] Follow up Appointment(s)/Referral(s): Cheko Richard MD [STAFF PHYSICIAN] - 1 Week (Monday, May 03, 2017 at 3:45) Peterson Mancini MD [Primary Care Provider] - 1 Week (Tuesday May 02, 2017) Patient Instructions/Handouts: *Surgery [facility] - After Heart Catheterization - Profiling Machine Operator Instructions, Myocardial Infarction (GEN) Discharge Disposition: HOME SELF-CARE
== END 2017-04-24 16:14 | disposition home or self-care (01) | DRG 247 ==
LOC: EC 20:40 → 6SEL 21:57
PROVIDERS: ADMIT Internal Medicine Geriatric Medicine; ATTEND Internal Medicine Geriatric Medicine
PROC: B2111ZZ Fluoroscopy of Multiple Coronary Arteries using Low Osmolar Contrast (ICD-10-PCS; principal; 2017-04-22 11:00)
PROC: 4A023N7 Measurement of Cardiac Sampling and Pressure, Left Heart, Percutaneous Approach (ICD-10-PCS; principal; 2017-04-22 11:00)
PROC: B2151ZZ Fluoroscopy of Left Heart using Low Osmolar Contrast (ICD-10-PCS; principal; 2017-04-22 11:00)
PROC: 027034Z Dilation of Coronary Artery, One Artery with Drug-eluting Intraluminal Device, Percutaneous Approach (ICD-10-PCS; principal; 2017-04-22 11:00)
DX: I21.19 ST elevation (STEMI) myocardial infarction involving other coronary artery of inferior wall (principal); I08.1 Rheumatic disorders of both mitral and tricuspid valves; I10 Essential (primary) hypertension; I22.2 Subsequent non-ST elevation (NSTEMI) myocardial infarction; E78.5 Hyperlipidemia, unspecified; I25.10 Atherosclerotic heart disease of native coronary artery without angina pectoris; I25.2 Old myocardial infarction; L80 Vitiligo; Z79.02 Long term (current) use of antithrombotics/antiplatelets; Z79.82 Long term (current) use of aspirin; Z79.899 Other long term (current) drug therapy; Z82.49 Family history of ischemic heart disease and other diseases of the circulatory system; Z83.3 Family history of diabetes mellitus
CPT/HCPCS: 36415; 71020; 80048; 80053; 80061; 82550; 82553; 83735; 84484; 85025; 85049; 85347; 85610; 85730; 93005; 93306; 93458